=== PATIENT | female | born 1970 | race Hispanic/Latino ===

== ENCOUNTER 2020-07-22 21:33 | Emergency (ER) | payer SELFPAY ==
[~2020-07-22] VITALS: Ht 172.7 cm; Wt 117.9 kg
== END 2020-07-22 21:55 | disposition home or self-care (01) ==
LOC: ER 21:41
DX: R50.9 Fever, unspecified (principal); R05 Cough; B34.9 Viral infection, unspecified; R06.02 Shortness of breath
CPT/HCPCS: 99282